=== PATIENT | female | born 2000 ===

== ENCOUNTER 2019-04-23 19:10 | Emergency (ER) | payer OTHER ==
[~2019-04-23] VITALS: Ht 157.5 cm; Wt 50.0 kg
[2019-04-23] MEDS ORDERED: LIDOcaine 1% W/epiNEPHrine 1:200,000 10ml vial IJ ONE (20:20)
[2019-04-23 20:58] VITALS: BP 126/71
== END 2019-04-23 21:01 | disposition home or self-care (01) ==
LOC: ER 19:14
DX: S61.411A Laceration without foreign body of right hand, initial encounter (principal); W25.XXXA Contact with sharp glass, initial encounter; Y93.89 Activity, other specified; Y92.89 Other specified places as the place of occurrence of the external cause; Y99.8 Other external cause status
CPT/HCPCS: 12001; 73130; 99283